=== PATIENT | male | born 1960 | race Caucasian/White ===

== ENCOUNTER 2024-08-30 21:21 | Emergency (ER) | payer BC, MEDICARE ==
[2024-08-30] MEDS ORDERED: Sodium Chloride 0.9% 10 ML Syringe FLUSH PRN (21:25)
[2024-08-30] MEDS ORDERED: Etomidate 2 MG/ML 10 ML SDV ONE (21:33)
[2024-08-30] MEDS: fentaNYL 100 MCG/2 ML SDV IVPUSH ONE (21:33)
[2024-08-30 21:46] LABS: HEMATOCRIT 40.1 % (40.0-54.0); HEMOGLOBIN 13.7 g/dL (13.0-18.0); MEAN CORPUSCULAR HGB CONC 34.2 g/dL (31.0-35.0); MEAN PLATELET VOLUME 8.8 fL (6.0-10.0); RED BLOOD CELL COUNT 4.28 M/uL (4.50-6.50); RED CELL DISTRIBUTION WIDTH 13.1 % (11.0-16.0); WHITE BLOOD CELL COUNT,WBC 10.1 K/uL (4.0-11.0)
[2024-08-30 22:03] LABS: A/G RATIO 1.1 (0.8-2.0); ALANINE AMINOTRANSFERASE,ALT 31 U/L (12-78); ALBUMIN 3.8 g/dL (3.4-5.0); ALKALINE PHOSPHATASE 62 U/L (46-116); ANION GAP 12.9 mmol/L (5.0-15.0); ASPARTATE AMNIOTRANSFERASE,AST 26 U/L (15-37); BILIRUBIN TOTAL 0.5 mg/dL (0.0-1.0); BLOOD UREA NITROGEN,BUN 26 mg/dL (8-26); BUN/CREATININE RATIO 15.9 (6-25); CALCIUM 8.5 mg/dL (8.5-10.1); CARBON DIOXIDE,CO2 27.3 mmol/L (21.0-32.0); CHLORIDE,CL 102 mmol/L (98-107); CREATININE 1.64 mg/dL (0.70-1.30); ESTIMATED GFR 46 mL/min (>60); GLUCOSE RANDOM 222 mg/dL (74-100); POTASSIUM,K 3.2 mmol/L (3.5-5.1); PROTEIN TOTAL,TP 7.3 g/dL (6.4-8.2); SODIUM,NA 139 mmol/L (136-145); TROPONIN I HIGH SENSITIVITY 5.7 pg/ml (<=60.4)
[2024-08-30] MEDS: propofoL 1,000 MG/100 ML 100 ML IV SCH (22:21)
[2024-08-30] MEDS ORDERED: Midazolam 1 MG/ML 5 ML SDV ONE (22:25)
[2024-08-30] MEDS: Sodium Chloride 0.9% 1,000 ML IV SCH (22:44)
[2024-08-30] MEDS: Tranexamic Acid 1,000 MG/10 ML Vial IVPUSH ONE ×2 (22:45→23:00)
[2024-08-30] MEDS: Ondansetron 4 MG/2 ML SDV IVPUSH ONE (22:57)
[2024-08-30] MEDS ORDERED: fentaNYL 100 MCG/2 ML SDV ONE (23:16)
[2024-08-30] MEDS: Midazolam 1 MG/ML 2 ML SDV IVPUSH ONE (23:17)
[2024-08-30] MEDS: Tranexamic Acid 1,000 MG/10 ML Vial ONE (23:24)
[2024-08-30] MEDS: levETIRAcetam 1,000 MG in Sodium Chloride 0.9% 100 ML IV ONE (23:37)
[2024-08-30] MEDS: levETIRAcetam 500 MG/5 ML SDV ONE (23:41)
[2024-08-30] MEDS ORDERED: Sodium Chloride 0.9% 1,000 ML IV SCH (23:45)
[2024-08-30] MEDS: ceFAZolin 1 GM Vial IVPUSH ONE (23:46)
[2024-08-30] MEDS: ceFAZolin 1 GM Vial ONE (23:49)
== END 2024-08-31 00:35 ==
LOC: LB.ED 21:21
DX: S02.91XB Unspecified fracture of skull, initial encounter for open fracture (principal); S06.309A Unspecified focal traumatic brain injury with loss of consciousness of unspecified duration, initial encounter; Z78.9 Other specified health status; W01.198A Fall on same level from slipping, tripping and stumbling with subsequent striking against other object, initial encounter
CPT/HCPCS: 31500; 36415; 51702; 70450; 71045; 72125; 80053; 80307; 84484; 85027; 96361; 96365; 96375; 96376; 99291-25; 99292; A0425; A0429; J0690; J1953; J2250; J2405; J2704; J3010; J3490; J7030